=== PATIENT | female | born 1955 | race Caucasian/White ===

== ENCOUNTER 2021-10-10 19:04 | Emergency (ER) | payer SELFPAY ==
[~2021-10-10] VITALS: Ht 175.3 cm; Wt 59.0 kg
--- NOTE | 2021-10-10 19:32 | NUR ---
pt in room 4b states she is going through withdrawal from benzo drugs. Says not eating well.
--- NOTE | 2021-10-10 21:10 | NUR ---
Dr. Salazar at bedside for MSE.
[2021-10-10] MEDS ORDERED: LORAZEPAM 1 MG TABLET ONE (21:27)
[2021-10-10] MEDS ORDERED: CLONIDINE HCL 0.1 MG TABLET ONE (21:28)
[2021-10-10] MEDS ORDERED: CLONIDINE HCL 0.1 MG TABLET PO ONE (21:30)
[2021-10-10] MEDS ORDERED: LORAZEPAM 0.5 MG TABLET PO ONE (21:30)
[2021-10-10 21:33] LABS: HEMATOCRIT 45.2 % (31.2-41.9); MEAN CORPUSCULAR HEMOGLOBIN 29.4 uug (24.7-32.8); MEAN CORPUSCULAR VOLUME 87.3 fL (75.5-95.3); PLATELET COUNT (AUTO) 175 K/uL (179-408)
[2021-10-10 21:40] LABS: CREATININE 1.1 mg/dL (0.6-1.3); POTASSIUM 3.7 mmol/L (3.5-5.1)
[2021-10-10 21:46] LABS: BILIRUBIN,DIRECT 0.1 mg/dL (0.0-0.2); BILIRUBIN,TOTAL 0.6 mg/dL (0.2-1.0); MAGNESIUM 1.8 mg/dL (1.8-2.4); TOTAL PROTEIN, SERUM 7.7 g/dL (6.4-8.2)
[2021-10-10] MEDS ORDERED: LISI20TA PO (23:22)
[2021-10-10] MEDS ORDERED: CLON0.1T PO (23:22)
[2021-10-10] MEDS ORDERED: CHLO25CA22 PO (23:27)
--- NOTE | 2021-10-10 23:35 | NUR ---
Patient discharged to home in stable condition. Written and verbal after care instructions given. Patient verbalizes understanding of instructions. Stressed follow up or return to ER for worsening s/s.
[2021-10-10 23:37] VITALS: BP 132/85
== END 2021-10-10 23:37 | disposition home or self-care (01) ==
LOC: ER 20:12
DX: I10 Essential (primary) hypertension (principal); F13.239 Sedative, hypnotic or anxiolytic dependence with withdrawal, unspecified; F41.9 Anxiety disorder, unspecified; Z86.73 Personal history of transient ischemic attack (TIA), and cerebral infarction without residual deficits
CPT/HCPCS: 36415; 83735; 85025; A4663

== ENCOUNTER 2021-10-31 10:11 | Emergency (ER) | payer SELFPAY ==
[~2021-10-31] VITALS: Ht 175.3 cm; Wt 59.0 kg
[~2021-10-31 10:11] MED LIST: CHLO25CA22 PO; CLON0.1T PO; LISI20TA PO
[2021-10-31] MEDS ORDERED: LORAZEPAM 0.5 MG TABLET PO ONE (11:15)
[2021-10-31] MEDS ORDERED: LORAZEPAM 0.5 MG TABLET ONE (11:20)
[2021-10-31] MEDS ORDERED: LORA-258 PO (11:34)
--- NOTE | 2021-10-31 11:50 | NUR ---
DCD instructions given to pt. who verbalized understanding. Patient left room [id number]. ambulatory steady gait no visible discomfort, with anxiety well controlled as stated by pt.
== END 2021-10-31 11:56 | disposition home or self-care (01) ==
LOC: ER 10:12
DX: F41.9 Anxiety disorder, unspecified (principal); I10 Essential (primary) hypertension; Z86.73 Personal history of transient ischemic attack (TIA), and cerebral infarction without residual deficits; F19.10 Other psychoactive substance abuse, uncomplicated
CPT/HCPCS: A4663

== ENCOUNTER → 2021-11-01 | Emergency (ER) | payer SELFPAY ==
[~2021-11-01] MED LIST changes: -CHLO25CA22 PO; -CLON0.1T PO; +LORA-258 PO
== END | disposition left against medical advice (07) ==
LOC: ER 17:05
DX: Z53.21 Procedure and treatment not carried out due to patient leaving prior to being seen by health care provider (principal)